=== PATIENT | male | born 1995 | race Caucasian/White ===

== ENCOUNTER 2017-12-29 09:38 | Emergency (ER) | payer OTHER ==
[~2017-12-29] VITALS: Ht 162.6 cm; Wt 76.0 kg
[2017-12-29 09:51] VITALS: BP 111/55; PULSE 61; RESP 16; TEMP 97.7; O2SAT 100
[2017-12-29] MEDS ORDERED: oxyCODONE/ACETAMINOPHEN 5 MG/325 MG TAB PO ONE (10:15)
[2017-12-29] MEDS ORDERED: FLUO40CA PO (10:45)
[2017-12-29 10:50] VITALS: BP 120/76; PULSE 69; RESP 18; O2SAT 99
--- NOTE | 2017-12-29 11:11 | RADRPT ---
EXAM DATE/TIME: 12/29/2017 10:37 [facility] COMPARISON: No previous studies available for comparison. INDICATIONS : Crushing injury to left distal 2nd finger. MEDICAL HISTORY : None. SURGICAL HISTORY : None. ENCOUNTER: Initial ACUITY: 1 day PAIN SCORE: 6/10 LOCATION: Left finger, 2nd FINDINGS: There is a mildly comminuted distal tuft fracture of the left pointer finger. There is approximately 1 mm of separation/displacement. Apparent skin/soft tissue defect as well. CONCLUSION: Mildly comminuted, mildly displaced open distal tuft fracture of the left pointer finger. Armando Garcia MD on December 29, 2017 at 11:08 Board Certified Radiologist. This report was verified electronically.
--- NOTE | 2017-12-29 11:14 | RADRPT ---
EXAM DATE/TIME: 12/29/2017 10:44 [facility] COMPARISON: No previous studies available for comparison. INDICATIONS : Crushing injury to right distal 2nd finger. MEDICAL HISTORY : None. SURGICAL HISTORY : None. ENCOUNTER: Initial ACUITY: 1 day PAIN SCORE: 6/10 LOCATION: Right finger, 2nd FINDINGS: There is a small fracture fragment off of the distal tuft of the pointer finger distal phalanx. There is approximately 2 mm of displacement/separation. Apparent soft tissue and nail defect. CONCLUSION: Moderately displaced open distal tuft fracture of the right pointer finger. Armando Garcia MD on December 29, 2017 at 11:11 Board Certified Radiologist. This report was verified electronically.
[2017-12-29] MEDS ORDERED: LIDOCAINE HCL 1% 50 ML VIAL INFIL ONE (11:30)
[2017-12-29] MEDS ORDERED: BUPIVACAINE HCL PF 0.5% 10 ML VIAL INFIL ONE (11:30)
[2017-12-29 11:55] VITALS: RESP 16
[2017-12-29] MEDS ORDERED: LIDOCAINE HCL 1% PF 30 ML VIAL ONE (11:56)
--- NOTE | 2017-12-29 12:53 | PD ---
Physical Exam Narrative I was asked by Dr. Baker to repair patient's lacerations. Please see her documentation for full H&P. Data Data Last Documented VS Vital Signs Date Time Temp Pulse Resp B/P (MAP) Pulse Ox O2 Delivery O2 Flow Rate FiO2 12/29/17 11:55 16 12/29/17 10:50 69 120/76 (91) 99 Room Air 12/29/17 09:51 97.7 Orders Orders Hand, Complete ([id number]) (12/29/17 ) Hand, Complete ([id number]) (12/29/17 ) Oxycodone-Acetamin 5-325 Mg (Percocet (12/29/17 10:15) Drug Screen, Random Urine (12/29/17 10:12) Bupivacaine Pf 0.5% Inj (Marcaine Pf 0.5 (12/29/17 11:30) Lidocaine 1% Inj (50 Ml) (Xylocaine 1% I (12/29/17 11:30) Lidocaine Pf 1% Inj (Xylocaine-Mpf 1% In (12/29/17 11:56) Labs Laboratory Tests Test 12/29/17 11:00 Urine Opiates Screen NEG Urine Barbiturates Screen NEG Urine Amphetamines Screen NEG Urine Benzodiazepines Screen NEG Urine Cocaine Screen NEG Urine Cannabinoids Screen NEG MDM Supervised Visit with [facility]: No Procedures Procedure Narrative LACERATION REPAIR LOCATION: Left finger distal phalanx palmar surface LENGTH: Approximately 2.5 cm in total length NUMBER OF STITCHES/ANNMARIE: 5 sutures REPAIR: Verbal consent was obtained. The area of the laceration was cleaned and prepped. Digital block was performed using a mixture of Marcaine without epi and lidocaine without epi. The wound was copiously irrigated and explored without evidence of foreign body, bony involvement, ligament injury, tendon injury, or neurovascular injury. The wound was closed using 5-0 Vicryl. This was a single layer repair. A sterile dressing was applied by nurse. The patient was advised to keep the affected area as clean and dry as possible using soap and water. There were no complications. Patient tolerated the procedure well. LACERATION REPAIR LOCATION: Left finger distal phalanx palmar surface LENGTH: Approximately 1 cm in total length NUMBER OF STITCHES/ANNMARIE: 1 suture REPAIR: Verbal consent was obtained. The area of the laceration was cleaned and prepped. Digital block was performed using a mixture of Marcaine without epi and lidocaine without epi. The wound was copiously irrigated and explored without evidence of foreign body, bony involvement, ligament injury, tendon injury, or neurovascular injury. The wound was closed using 5-0 Vicryl. This was a single layer repair. A sterile dressing was applied by nurse. The patient was advised to keep the affected area as clean and dry as possible using soap and water. There were no complications. Patient tolerated the procedure well. LACERATION REPAIR LOCATION: Left finger distal phalanx dorsal surface LENGTH: Approximately 1.5 cm in total length NUMBER OF STITCHES/ANNMARIE: 3 sutures REPAIR: Verbal consent was obtained. The area of the laceration was cleaned and prepped. Digital block was performed using a mixture of Marcaine without epi and lidocaine without epi. The wound was copiously irrigated and explored without evidence of foreign body, bony involvement, ligament injury, tendon injury, or neurovascular injury. The wound was closed using 5-0 Vicryl. This was a single layer repair. A sterile dressing was applied by nurse. The patient was advised to keep the affected area as clean and dry as possible using soap and water. There were no complications. Patient tolerated the procedure well. LACERATION REPAIR LOCATION: Right finger distal phalanx palmar surface LENGTH: Approximately 1.5 cm in total length NUMBER OF STITCHES/ANNMARIE: 3 sutures REPAIR: Verbal consent was obtained. The area of the laceration was cleaned and prepped. Digital block was performed using a mixture of Marcaine without epi and lidocaine without epi. The wound was copiously irrigated and explored without evidence of foreign body, bony involvement, ligament injury, tendon injury, or neurovascular injury. The wound was closed using 5-0 Vicryl. This was a single layer repair. A sterile dressing was applied by nurse. The patient was advised to keep the affected area as clean and dry as possible using soap and water. There were no complications. Patient tolerated the procedure well. LACERATION REPAIR LOCATION: Right finger distal phalanx palmar surface LENGTH: Approximately 1 cm in total length V-shaped NUMBER OF STITCHES/ANNMARIE: 1 suture REPAIR: Verbal consent was obtained. The area of the laceration was cleaned and prepped. Digital block was performed using a mixture of Marcaine without epi and lidocaine without epi. The wound was copiously irrigated and explored without evidence of foreign body, bony involvement, ligament injury, tendon injury, or neurovascular injury. The wound was closed using 5-0 Vicryl. This was a single layer repair. A sterile dressing was applied by nurse. The patient was advised to keep the affected area as clean and dry as possible using soap and water. There were no complications. Patient tolerated the procedure well. LACERATION REPAIR LOCATION: Right finger distal phalanx dorsal surface LENGTH: Approximately 1.5 cm in total length with nailbed displacement NUMBER OF STITCHES/ANNMARIE: 3 sutures REPAIR: Verbal consent was obtained. The area of the laceration was cleaned and prepped. Digital block was performed using a mixture of Marcaine without epi and lidocaine without epi. The wound was copiously irrigated and explored without evidence of foreign body, bony involvement, ligament injury, tendon injury, or neurovascular injury. Nail was reinserted into the nailbed and secured with sutures. The wound was closed using 5-0 Vicryl. This was a single layer repair. A sterile dressing was applied by nurse. The patient was advised to keep the affected area as clean and dry as possible using soap and water. There were no complications. Patient tolerated the procedure well. Norm Gage Dec 29, 2017 12:53
[2017-12-29] MEDS ORDERED: AUGM875T3 PO (12:54)
[2017-12-29] MEDS ORDERED: NORC5TAB PO (12:54)
--- NOTE | 2017-12-29 12:54 | PD ---
HPI Chief Complaint: Injury Time Seen by Provider: 10:01 Travel History International Travel<30 days: No Contact w/Intl Traveler<30days: No Traveled to known affect area: No History of Present Illness HPI Patient is a 22 year old male who comes in after getting his fingers stuck in a machine at work. This happened just prior to arrival. He has pain to both second fingers on each hand. He says he is due for a tetanus vaccine. He denies any other injuries. He has not taken anything for pain. Severity is moderate. [facility] Past Medical History ADD: Yes Depression: Yes Tetanus Vaccination: > 5 Years Influenza Vaccination: No Past Surgical History Abdominal Surgery: Yes Social History Alcohol Use: Yes ([facility]) Tobacco Use: No Substance Use: No Allergies-Medications (Allergen,Severity, Reaction): Coded Allergies: No Known Allergies (Unverified , 12/29/17) Reported Meds & Prescriptions Reported Meds & Active Scripts Active Reported Fluoxetine (Fluoxetine HCl) 40 Mg Cap 40 Cap PO DAILY Review of Systems Except as stated in HPI: all other systems reviewed are Neg General / Constitutional: No: Fever, Chills HENT: No: Headaches, Lightheadedness Cardiovascular: No: Chest Pain or Discomfort Respiratory: No: Shortness of Breath Gastrointestinal: No: Nausea, Vomiting Musculoskeletal: Positive: Pain, No: Myalgias Skin: Positive Other (Lacerations) Neurologic: No: Weakness, Dizziness, Sensory Disturbance Physical Exam Narrative GENERAL: Awake and alert, in no acute distress. SKIN: Multiple lacerations to the distal portions of the second finger in both hands. No nailbed injury. HEAD: Atraumatic. Normocephalic. EYES: Pupils equal and round. No scleral icterus. ENT: Mucous membranes pink and moist. NECK: Trachea midline. No JVD. CARDIOVASCULAR: Regular rate and rhythm. No murmur appreciated. RESPIRATORY: No accessory muscle use. Clear to auscultation. Breath sounds equal bilaterally. MUSCULOSKELETAL: No obvious deformities. No clubbing. No cyanosis. No edema. NEUROLOGICAL: Awake and alert. No obvious cranial nerve deficits. Motor grossly within normal limits. Normal speech. PSYCHIATRIC: Appropriate mood and affect; insight and judgment normal. Data Data Last Documented VS Vital Signs Date Time Temp Pulse Resp B/P (MAP) Pulse Ox O2 Delivery O2 Flow Rate FiO2 12/29/17 11:55 16 12/29/17 10:50 69 120/76 (91) 99 Room Air 12/29/17 09:51 97.7 Orders Orders Hand, Complete ([id number]) (12/29/17 ) Hand, Complete ([id number]) (12/29/17 ) Oxycodone-Acetamin 5-325 Mg (Percocet (12/29/17 10:15) Drug Screen, Random Urine (12/29/17 10:12) Bupivacaine Pf 0.5% Inj (Marcaine Pf 0.5 (12/29/17 11:30) Lidocaine 1% Inj (50 Ml) (Xylocaine 1% I (12/29/17 11:30) Lidocaine Pf 1% Inj (Xylocaine-Mpf 1% In (12/29/17 11:56) Labs Laboratory Tests Test 12/29/17 11:00 Urine Opiates Screen NEG Urine Barbiturates Screen NEG Urine Amphetamines Screen NEG Urine Benzodiazepines Screen NEG Urine Cocaine Screen NEG Urine Cannabinoids Screen NEG MDM Medical Decision Making Medical Screen Exam Complete: Yes Emergency Medical Condition: Yes Differential Diagnosis Open fracture versus laceration versus crush injury Narrative Course Patient is a 22-year-old male who comes in after crushing both of his fingers in a tool at work. Exam shows several lacerations to the distal portions of the second fingers on both hands. X-ray obtained shows fractures of the distal precious of the fingers. Patient given pain medicine. Tetanus updated. I spoke with Dr. Madison of hand surgery who suggests cleaning the wounds and suturing the fingers back together. Patient placed in finger splints. Given a prescription for antibiotics. Advised to follow-up with hand surgery. Advised return to the ED as needed for any worsening symptoms. Lacerations repaired by JEFFREY Gage. Diagnosis Primary Impression: Laceration of finger Qualified Codes: S61.218A - Laceration without foreign body of other finger without damage to nail, initial encounter Additional Impression: Fracture, finger, open Qualified Codes: S62.638B - Displaced fracture of distal phalanx of other finger, initial encounter for open fracture Referrals: Irvin Madison III, MD call for appointment Patient Instructions: Finger Fracture (ED), Finger Laceration (ED), General Instructions Additional Instructions: Follow-up with hand surgery. Keep your wounds clean and dry. Take all of your antibiotic. Return to the ED as needed for any worsening symptoms. Scripts Hydrocodone-Acetaminophen ([place]) 5 Mg-325 Mg Tab 1 TAB PO Q6H Y for PAIN, #10 TAB 0 Refills Prov: Chelo Baker MD 12/29/17 Amoxicillin-Clavulanate (Augmentin) 875-125 Mg Tab 1 TAB PO BID for Infection for 7 Days, #14 TAB 0 Refills Prov: Chelo Baker MD 12/29/17 Disposition: 01 DISCHARGE HOME Condition: Stable Chelo Baker MD Dec 29, 2017 12:54
[2017-12-29 13:10] VITALS: BP 130/77; TEMP 97.8
== END 2017-12-29 13:28 | disposition home or self-care (01) ==
LOC: NEPE 09:38
DX: S62.631B Displaced fracture of distal phalanx of left index finger, initial encounter for open fracture (principal); S61.210A Laceration without foreign body of right index finger without damage to nail, initial encounter; W23.0XXA Caught, crushed, jammed, or pinched between moving objects, initial encounter; Y99.0 Civilian activity done for income or pay
CPT/HCPCS: 12004; 73130; 80307